=== PATIENT | male | born 1960 | race Caucasian/White ===

== ENCOUNTER → 2017-05-10 | Outpatient (REF) | payer BC | LOC: M LAB REF 10:02 | PROVIDERS: ATTEND Ophthalmology | DX: T15.01XA Foreign body in cornea, right eye, initial encounter (principal) ==

== ENCOUNTER → 2017-09-28 | Outpatient (REF) | payer BC | LOC: M SMT 13:13 | PROVIDERS: ATTEND Urology | DX: R31.29 Other microscopic hematuria (principal) ==

== ENCOUNTER → 2017-10-16 | Outpatient (CLI) | payer BC ==
[~2017-10-16] MED LIST: ISOVUE-370 76% 100ML VIAL (Q9967) As Ordered ONE
--- NOTE | 2017-10-16 15:21 | REP ---
Clinical: Hematuria. Technique: Axial precontrast, contrast enhanced, and delayed images of the abdomen and pelvis using 100 ml Isovue 370 intravenous contrast material with coronal and sagittal re-formations as well as 3-D volume rendered CT urogram. Findings: Innumerable cysts are identified throughout the liver and kidneys consistent with polycystic kidney disease. Noncontrast series demonstrates small amount of scattered bilateral medullary nephrocalcinosis and 2 mm nonobstructing left renal calculus. No obvious enhancing mass or significant complex cyst identified. Delayed images demonstrate appropriate enhancement to the collecting system without hydroureteronephrosis. The bladder is grossly unremarkable. Spleen, pancreas, gallbladder, and bilateral adrenal glands are normal. The enteric system is without obstruction or acute inflammatory process. Scattered sigmoid diverticula noted without acute diverticulitis. Prostate gland and seminal vesicles appear prominent. Small fat containing left inguinal hernia. No ascites. No adenopathy. No free air. Vasculature appears normal. Musculoskeletal structures demonstrate degenerative changes including chronic right-sided sacroiliitis. Impression: 1. Innumerable simple hepatic and renal cysts compatible with polycystic kidney disease. Small amount of medullary nephrocalcinosis and 2 mm nonobstructing left renal calculus noted. No obvious complex cyst or mass lesion appreciated. 2. Mild prominence to the prostate gland and seminal vesicles otherwise appear normal. 3. Sigmoid diverticula without acute diverticulitis. Signed by Claudio Ware MD 10/16/2017 03:12 P
== END ==
LOC: M RAD 13:43
PROVIDERS: ATTEND Urology
DX: R93.2 Abnormal findings on diagnostic imaging of liver and biliary tract (principal); N28.1 Cyst of kidney, acquired; K57.00 Diverticulitis of small intestine with perforation and abscess without bleeding
CPT/HCPCS: 74178; Q9967

== ENCOUNTER → 2019-06-26 | Outpatient (REF) | payer BC ==
[2019-06-26 14:26] LABS: ALBUMIN 3.9 GM/DL (3.2-5.2); ALT/SGPT 35 U/L (12-78); BILIRUBIN,TOTAL 0.7 MG/DL (0.2-1.0); BLOOD UREA NITROGEN 17 MG/DL (7-18); CALCIUM LEVEL 9.3 MG/DL (8.8-10.2); CARBON DIOXIDE LEVEL 31 MEQ/L (21-32); CHLORIDE LEVEL 106 MEQ/L (98-107); CHOLESTEROL LEVEL 195 MG/DL (<200); CHOLESTEROL RISK RATIO 3.362 (<5); CREATININE FOR GFR 1.18 MG/DL (0.70-1.30); GLOMERULAR FILTRATION RATE > 60.0 (>49); GLUCOSE, FASTING 93 MG/DL (70-100); HDL CHOLESTEROL 58 MG/DL (>40); LDL CHOLESTEROL 112 MG/DL (<100); NON-HDL-C 137 MG/DL; POTASSIUM SERUM 4.9 MEQ/L (3.5-5.1); SODIUM LEVEL 140 MEQ/L (136-145); TOTAL PROTEIN 6.9 GM/DL (6.4-8.2); TRIGLYCERIDES LEVEL 125 MG/DL (<150)
[2019-06-28 00:06] LABS: Lyme Disease IgG Ab 18 kDa Ban Absent (.); Lyme Disease IgG Ab 23 kDa Ban Absent (.); Lyme Disease IgG Ab 28 kDa Ban Absent (.); Lyme Disease IgG Ab 30 kDa Ban Present (.); Lyme Disease IgG Ab 39 kDa Ban Absent (.); Lyme Disease IgG Ab 41 kDa Ban Present (.); Lyme Disease IgG Ab 45 kDa Ban Absent (.); Lyme Disease IgG Ab 58 kDa Ban Absent (.); Lyme Disease IgG Ab 66 kDa Ban Absent (.); Lyme Disease IgG Ab 93 kDa Ban Absent (.); Lyme Disease IgG West Blot Int Negative (.); Lyme Disease IgG/IgM Antibodie 0.97 ISR (0.00-0.90); Lyme Disease IgM Ab 23 kDa Ban Absent (.); Lyme Disease IgM Ab 39 kDa Ban Absent (.); Lyme Disease IgM Ab 41 kDa Ban Absent (.); Lyme Disease IgM Ab Quantitati <0.80 index (0.00-0.79); Lyme Disease IgM West Blot Int Negative (.)
== END ==
LOC: M SFHCCLAY 07:05
PROVIDERS: ATTEND Physician Assistant Medical
DX: R73.01 Impaired fasting glucose (principal)

== ENCOUNTER 2019-09-26 08:59 | Day surgery (SDC) | payer BC ==
[~2019-09-26] VITALS: Ht 177.8 cm; Wt 77.1 kg
[~2019-09-26 08:59] MED LIST changes: +CHOL100029 PO; -ISOVUE-370 76% 100ML VIAL (Q9967) As Ordered ONE; +LIDOCAINE 2% INJ 100 MG/5 ML SDV (FOR ANES.) As Ordered ONE; +LISI10TA4 PO; +NS 1,000 ML IV ONE
[2019-09-26] MEDS ORDERED: PROPOFOL 200 MG/20 ML VIAL As Ordered ONE ×2 (09:08→10:22)
--- NOTE | 2019-09-26 10:31 | ROOR ---
Patient Name: Chris Evans Procedure Date: 09/26/2019 10:12 AM Date of : 1960 Age: 59 Room: [facility] Gender: Male Note Status: Finalized Procedure: Colonoscopy Indications: Screening for colorectal malignant neoplasm Providers: Huang MERCADO MD Referring MD: LISSETTE Dotson Requesting Provider: Medicines: Monitored Anesthesia Care Complications: No immediate complications. Procedure: Pre-Anesthesia Assessment: - The heart rate, respiratory rate, oxygen saturations, blood pressure, adequacy of pulmonary ventilation, and response to care were monitored throughout the procedure. The Colonoscope was introduced through the anus and advanced to the terminal ileum, with identification of the appendiceal orifice and IC valve. The colonoscopy was performed without difficulty. The patient tolerated the procedure well. The quality of the bowel preparation was good. Findings: The perianal and digital rectal examinations were normal. A 3 mm polyp was found in the cecum. The polyp was sessile. The polyp was removed with a cold snare. Resection and retrieval were complete. A few small-mouthed diverticula were found in the sigmoid colon. Small Internal Hemorrhoids. The exam was otherwise without abnormality on direct and retroflexion views. Impression: - One 3 mm polyp in the cecum, removed with a cold snare. Resected and retrieved. - Mild diverticulosis in the sigmoid colon. - Small Internal Hemorrhoids. - The examination was otherwise normal on direct and retroflexion views. Recommendation: - Telephone endoscopist for pathology results in 2 weeks. - If the pathology report reveals adenomatous tissue, then repeat the colonoscopy for surveillance in 5 years. - If the pathology report reveals no adenomatous tissue, then repeat the colonoscopy for screening purposes in 10 years. Huang Mercado MD Huang MERCADO MD 09/26/2019 10:31:14 AM Electronically signed by Huang MERCADO MD Number of Addenda: 0 Note Initiated On: 09/26/2019 10:12 AM Estimated Blood Loss: Estimated blood loss: none.
[2019-09-26 11:02] VITALS: BP 126/81
== END 2019-09-26 11:07 | disposition home or self-care (01) ==
LOC: M OPP 08:59
PROVIDERS: ATTEND Internal Medicine Gastroenterology
DX: Z12.11 Encounter for screening for malignant neoplasm of colon (principal); K64.8 Other hemorrhoids; D12.0 Benign neoplasm of cecum; K57.30 Diverticulosis of large intestine without perforation or abscess without bleeding; I10 Essential (primary) hypertension; Q61.3 Polycystic kidney, unspecified; Z79.899 Other long term (current) drug therapy

== ENCOUNTER 2022-02-18 21:17 | Emergency (ER) | payer BC ==
[~2022-02-18] VITALS: Ht 177.8 cm; Wt 76.0 kg
[~2022-02-18 21:17] MED LIST changes: -LIDOCAINE 2% INJ 100 MG/5 ML SDV (FOR ANES.) As Ordered ONE; +LISI10TA22 PO; -LISI10TA4 PO; -NS 1,000 ML IV ONE
[2022-02-18 21:18] VITALS: BP 138/77
[2022-02-18] MEDS ORDERED: NS 1,000 ML IV ONE (22:35)
[2022-02-18 22:46] LABS: APPEARANCE, URINE CLEAR (CLEAR); BACTERIA, URINE AUTO NEGATIVE (NEGATIVE); BILIRUBIN, URINE AUTO NEGATIVE (NEGATIVE); BLOOD, URINE BLOOD 1+ (NEGATIVE); COLOR, URINE STRAW (YELLOW); GLUCOSE, URINE (UA) AUTO NEGATIVE (NEGATIVE); KETONE, URINE AUTO NEGATIVE (NEGATIVE); LEUKOCYTE ESTERASE, URINE AUTO NEGATIVE (NEGATIVE); NITRITE, URINE AUTO NEGATIVE (NEGATIVE); PROTEIN, URINE AUTO NEGATIVE (NEGATIVE); RBC, URINE AUTO 2 /HPF (0-3); SPECIFIC GRAVITY URINE AUTO 1.008 (1.002-1.035); SQUAMOUS EPITHELIAL CELL UR AU 0 /HPF (0-6); UROBILINOGEN, URINE AUTO 0.2 mg/dL (0.0-2.0); WBC, URINE AUTO 0 /HPF (0-3)
[2022-02-18 22:53] LABS: BASO # 0.1 10^3/uL (0.0-0.2); BASO % 0.4 % (0.0-1.0); EOS # 0.1 10^3/uL (0.0-0.5); EOS % 0.6 % (0.0-3.0); HEMATOCRIT 46.6 % (42.0-52.0); HEMOGLOBIN 15.8 g/dl (13.5-17.5); LYMPH # 4.1 10^3/uL (1.5-5.0); LYMPH % 36.4 % (24.0-44.0); MEAN CORPUSCULAR HEMOGLOBIN 29.9 pg (27.0-33.0); MEAN CORPUSCULAR HGB CONC 33.9 g/dl (32.0-36.5); MEAN CORPUSCULAR VOLUME 88.3 fl (80.0-96.0); MONO # 0.9 10^3/uL (0.0-0.8); MONO % 7.6 % (2.0-8.0); NEUTROPHILS # 6.2 10^3/uL (1.5-8.5); NEUTROPHILS % 54.7 % (36.0-66.0); PLATELET COUNT, AUTOMATED 137 10^3/uL (150-450); RED BLOOD COUNT 5.28 10^6/uL (4.30-6.10); WHITE BLOOD COUNT 11.4 10^3/uL (4.0-10.0)
[2022-02-18 23:18] LABS: ALBUMIN 3.8 GM/DL (3.2-5.2); BILIRUBIN,DIRECT 0.2 MG/DL (0.0-0.2); BILIRUBIN,TOTAL 0.9 MG/DL (0.2-1.0); CALCIUM LEVEL 9.1 MG/DL (8.8-10.2); CREATININE FOR GFR 1.41 MG/DL (0.70-1.30); POTASSIUM SERUM 4.7 MEQ/L (3.5-5.1)
[2022-02-19] MEDS ORDERED: cefTRIAXone SOD 1 GM in D5W MINI-BAG PLUS 50 ML IV ONE (00:55)
[2022-02-19] MEDS ORDERED: CIPR-249 PO (01:44)
== END 2022-02-19 02:02 | disposition home or self-care (01) ==
LOC: M ED 21:17
DX: Q61.2 Polycystic kidney, adult type (principal); N10 Acute pyelonephritis; I10 Essential (primary) hypertension; Z87.448 Personal history of other diseases of urinary system; Z79.811 Long term (current) use of aromatase inhibitors; Z79.899 Other long term (current) drug therapy
CPT/HCPCS: 74176; 76705; 80048; 80076; 81001; 83690; 85025; 96361; 96365; 99283; J0696

== ENCOUNTER → 2022-04-06 | Outpatient (REF) | payer BC ==
[~2022-04-06] MED LIST changes: +CIPR-249 PO
[2022-04-06 16:01] LABS: APPEARANCE, URINE CLEAR (CLEAR); BACTERIA, URINE AUTO NEGATIVE (NEGATIVE); BILIRUBIN, URINE AUTO NEGATIVE (NEGATIVE); BLOOD, URINE BLOOD 1+ (NEGATIVE); COLOR, URINE YELLOW (YELLOW); GLUCOSE, URINE (UA) AUTO NEGATIVE (NEGATIVE); KETONE, URINE AUTO NEGATIVE (NEGATIVE); LEUKOCYTE ESTERASE, URINE AUTO NEGATIVE (NEGATIVE); MUCUS, URINE SMALL (NEGATIVE); NITRITE, URINE AUTO NEGATIVE (NEGATIVE); PROTEIN, URINE AUTO NEGATIVE (NEGATIVE); RBC, URINE AUTO 2 /HPF (0-3); SPECIFIC GRAVITY URINE AUTO 1.015 (1.002-1.035); SQUAMOUS EPITHELIAL CELL UR AU 0 /HPF (0-6); UROBILINOGEN, URINE AUTO 0.2 mg/dL (0.0-2.0); WBC, URINE AUTO 0 /HPF (0-3)
[2022-04-06 16:16] LABS: ALBUMIN 3.9 GM/DL (3.2-5.2); ALT/SGPT 42 U/L (12-78); BILIRUBIN,TOTAL 0.8 MG/DL (0.2-1.0); BLOOD UREA NITROGEN 22 MG/DL (7-18); CALCIUM LEVEL 9.2 MG/DL (8.8-10.2); CARBON DIOXIDE LEVEL 31 MEQ/L (21-32); CHLORIDE LEVEL 108 MEQ/L (98-107); CHOLESTEROL LEVEL 169 MG/DL (<200); CHOLESTEROL RISK RATIO 2.964 (<5); CREATININE FOR GFR 1.22 MG/DL (0.70-1.30); GLOMERULAR FILTRATION RATE > 60.0 (>49); GLUCOSE, FASTING 95 MG/DL (70-100); HDL CHOLESTEROL 57 MG/DL (>40); LDL CHOLESTEROL 89 MG/DL (<100); NON-HDL-C 112 MG/DL; POTASSIUM SERUM 4.3 MEQ/L (3.5-5.1); SODIUM LEVEL 141 MEQ/L (136-145); TOTAL PROTEIN 6.9 GM/DL (6.4-8.2); TRIGLYCERIDES LEVEL 113 MG/DL (<150)
[2022-04-06 16:37] LABS: MALB URINE SIEMENS 30.1 MG/L; MAU/CREAT RATIO 26.1 MCG/MG (0.0-30.0)
[2022-04-06 17:40] LABS: HEMOGLOBIN A1c 5.5 %
== END ==
LOC: M SFHCADAM 07:13
PROVIDERS: ATTEND Physician Assistant Medical
DX: I10 Essential (primary) hypertension (principal); N40.1 Benign prostatic hyperplasia with lower urinary tract symptoms; Q61.3 Polycystic kidney, unspecified; E78.2 Mixed hyperlipidemia; R73.01 Impaired fasting glucose; N18.30 Chronic kidney disease, stage 3 unspecified; Z00.00 Encounter for general adult medical examination without abnormal findings

== ENCOUNTER → 2023-05-01 | Outpatient (REF) | payer MEDICARE ==
[2023-05-01 12:05] LABS: ALBUMIN 3.9 G/DL (3.2-5.2); ALKALINE PHOSPHATASE 69 U/L (46-116); ALT/SGPT 28 U/L (7.0-40); AST/SGOT 17 U/L (<34); BLOOD UREA NITROGEN 26 MG/DL (9-23); CALCIUM LEVEL 8.9 MG/DL (8.3-10.6); CARBON DIOXIDE LEVEL 28 MMOL/L (20-31); CHLORIDE LEVEL 107 MMOL/L (98-107); CHOLESTEROL LEVEL 158 MG/DL (<200); CHOLESTEROL RISK RATIO 2.76 (<5); CREATININE FOR GFR 1.19 MG/DL (0.70-1.30); GLOMERULAR FILTRATION RATE > 60.0 (>49); GLUCOSE, FASTING 85 MG/DL (74-106); HDL CHOLESTEROL 57.1 MG/DL (>40); LDL CHOLESTEROL 83.7 MG/DL (<100); NON-HDL-C 100.9 MG/DL; POTASSIUM SERUM 4.6 MMOL/L (3.5-5.1); SODIUM LEVEL 139 MMOL/L (136-145); TOTAL PROTEIN 6.6 G/DL (5.7-8.2); TRIGLYCERIDES LEVEL 86 MG/DL (<150)
[2023-05-01 13:07] LABS: HEMOGLOBIN A1c 5.4 % (4.0-6.0)
== END ==
LOC: M SFHCCLAY 07:11
PROVIDERS: ATTEND Physician Assistant Medical
DX: E78.2 Mixed hyperlipidemia (principal); R73.01 Impaired fasting glucose; I12.9 Hypertensive chronic kidney disease with stage 1 through stage 4 chronic kidney disease, or unspecified chronic kidney disease

== ENCOUNTER → 2023-09-26 | Outpatient (CLI) | payer MEDICARE | LOC: M RAD 06:59 | PROVIDERS: ATTEND Nurse Practitioner Family | DX: Q61.2 Polycystic kidney, adult type (principal) ==

== ENCOUNTER → 2024-05-20 | Outpatient (REF) | payer MEDICARE ==
[2024-05-20 11:54] LABS: BASO # 0.1 10^3/uL (0.0-0.2); BASO % 0.6 % (0.0-1.0); EOS # 0.1 10^3/uL (0.0-0.5); EOS % 1.1 % (0.0-3.0); HEMATOCRIT 47.7 % (42.0-52.0); HEMOGLOBIN 16.1 g/dl (13.5-17.5); LYMPH # 4.9 10^3/uL (1.5-5.0); LYMPH % 54.4 % (24.0-44.0); MEAN CORPUSCULAR HEMOGLOBIN 29.8 pg (27.0-33.0); MEAN CORPUSCULAR HGB CONC 33.8 g/dl (32.0-36.5); MEAN CORPUSCULAR VOLUME 88.3 fl (80.0-96.0); MONO # 0.5 10^3/uL (0.0-0.8); MONO % 5.7 % (2.0-8.0); NEUTROPHILS # 3.4 10^3/uL (1.5-8.5); NEUTROPHILS % 38.1 % (36.0-66.0); PLATELET COUNT, AUTOMATED 120 10^3/uL (150-450); WHITE BLOOD COUNT 8.9 10^3/uL (4.0-10.0)
[2024-05-20 12:26] LABS: ALKALINE PHOSPHATASE 74 U/L (46-116); ALT/SGPT 30 U/L (7.0-40); AST/SGOT 17 U/L (<34); BILIRUBIN,TOTAL 0.9 MG/DL (0.3-1.2); BLOOD UREA NITROGEN 31 MG/DL (9-23); CALCIUM LEVEL 9.3 MG/DL (8.3-10.6); CARBON DIOXIDE LEVEL 29 MMOL/L (20-31); CHLORIDE LEVEL 109 MMOL/L (98-107); CHOLESTEROL LEVEL 170 MG/DL (<200); CHOLESTEROL RISK RATIO 3.28 (<5); CREATININE FOR GFR 1.21 MG/DL (0.70-1.30); GLOMERULAR FILTRATION RATE > 60.0 (>49); GLUCOSE, FASTING 93 MG/DL (74-106); HDL CHOLESTEROL 51.7 MG/DL (>40); LDL CHOLESTEROL 95.7 MG/DL (<100); NON-HDL-C 118.3 MG/DL; POTASSIUM SERUM 4.4 MMOL/L (3.5-5.1); SODIUM LEVEL 143 MMOL/L (136-145); TOTAL PROTEIN 6.7 G/DL (5.7-8.2); TRIGLYCERIDES LEVEL 113 MG/DL (<150)
[2024-05-20 12:27] LABS: THYROID STIMULATING HORMONE 1.421 uIU/ML (0.55-4.78)
[2024-05-20 12:28] LABS: TOTAL 25(OH) VITAMIN D 61.3 NG/ML (20.0-100.0)
== END ==
LOC: M SFHCCLAY 07:08
PROVIDERS: ATTEND Physician Assistant Medical
DX: I12.9 Hypertensive chronic kidney disease with stage 1 through stage 4 chronic kidney disease, or unspecified chronic kidney disease (principal); E78.2 Mixed hyperlipidemia; Q61.3 Polycystic kidney, unspecified; N18.31 Chronic kidney disease, stage 3a

== ENCOUNTER → 2025-05-25 | Outpatient (REF) | payer MEDICARE ==
[~2025-05-25] MED LIST changes: +VITA100093 PO
[2025-05-25 12:47] LABS: ALT/SGPT 46.0 U/L (7.0-40); AST/SGOT 41.0 U/L (<34); CALCIUM LEVEL 9.3 MG/DL (8.3-10.6); CARBON DIOXIDE LEVEL 27.0 MMOL/L (20-31); CHLORIDE LEVEL 105.0 MMOL/L (98-107); CHOLESTEROL LEVEL 155.0 MG/DL (<200); CHOLESTEROL RISK RATIO 3.38 (<5); CREATININE FOR GFR 1.29 MG/DL (0.70-1.30); GLOMERULAR FILTRATION RATE 60.8 (>49); LDL CHOLESTEROL 73.8 MG/DL (<100); NON-HDL-C 109.2 MG/DL; POTASSIUM SERUM 4.7 MMOL/L (3.5-5.1); SODIUM LEVEL 141.0 MMOL/L (136-145); TRIGLYCERIDES LEVEL 177.0 MG/DL (<150)
[2025-05-25 12:48] LABS: BASO # 0.1 10^3/uL (0.0-0.2); BASO % 0.5 % (0.0-1.0); EOS # 0.1 10^3/uL (0.0-0.5); EOS % 0.8 % (0.0-3.0); LYMPH # 5.7 10^3/uL (1.5-5.0); LYMPH % 58.7 % (24.0-44.0); MONO # 0.4 10^3/uL (0.0-0.8); MONO % 4.3 % (2.0-8.0); NEUTROPHILS # 3.4 10^3/uL (1.5-8.5); NEUTROPHILS % 35.4 % (36.0-66.0); PLATELET COUNT, AUTOMATED 109 10^3/uL (150-450)
== END ==
LOC: M SFHCCLAY 07:20
PROVIDERS: ATTEND Physician Assistant Medical
DX: Z00.00 Encounter for general adult medical examination without abnormal findings (principal); I12.9 Hypertensive chronic kidney disease with stage 1 through stage 4 chronic kidney disease, or unspecified chronic kidney disease; E78.2 Mixed hyperlipidemia; Q61.3 Polycystic kidney, unspecified; N18.31 Chronic kidney disease, stage 3a